=== PATIENT | male | born 1985 | race Caucasian/White ===

== ENCOUNTER 2024-11-17 20:38 | Emergency (ER) | payer OTHER ==
[~2024-11-17] VITALS: Ht 177.8 cm; Wt 107.5 kg
[~2024-11-17 20:38] MED LIST: TRAM50TA4 PO
[2024-11-17 20:54] VITALS: BP 157/112; PULSE 118; RESP 18; TEMP 99.2; O2SAT 97
--- NOTE | 2024-11-17 20:59 | EKG ---
[facility] Test Date: 2024-11-17 Test Time: 20:55:45 Pat Name: ELLA PETERSON Department: ED Room: Gender: M Psychosocial Rehabilitation Counselor: 08 : 1985 Requested By: INEZ MEI Order Number: [id number] Reading MD: Cornelius Lara Measurements Intervals [place] Rate: 103 P: 32 OR: 144 QRS: 33 QRSD: 81 T: 19 QT: 322 QTc: 423 Interpretive Statements Sinus tachycardia with irregular rate Consider left ventricular hypertrophy No previous ECG available for comparison Electronically Signed On 11-18-2024 19:19:34 BIOLOGY SPECIALIST by Cornelius Lara Please click the below link to view image of tracing.
[2024-11-17 21:17] LABS: BASOPHILS # (AUTO) 0.03 K/uL (0.00-0.20); BASOPHILS % (AUTO) 0.2 % (0.0-5.0); EOSINOPHILS # (AUTO) 0.16 K/uL (0.00-0.70); EOSINOPHILS % (AUTO) 1.2 % (0.0-8.0); HEMATOCRIT 40.6 % (42-54); IMMATURE GRANULOCYTE ABSOLUTE 0.09 K/uL (0-1); LYMPHOCYTES # (AUTO) 2.7 K/uL (1.0-4.8); LYMPHOCYTES % (AUTO) 20.4 % (21.0-51.0); MEAN CORPUSCULAR HEMOGLOBIN 27.4 pg (27.0-33.0); MEAN CORPUSCULAR HGB CONC 32.5 g/dL (32.0-36.0); MEAN CORPUSCULAR VOLUME 84.4 fL (79-99); MONOCYTES % (AUTO) 7.6 % (3.0-13.0); NEUTROPHILS # (AUTO) 9.3 K/uL (1.8-7.7); NEUTROPHILS % (AUTO) 69.9 % (40.0-77.0); PLATELET COUNT (AUTO) 361 K/uL (130-400); RED BLOOD CELL COUNT(AUTO) 4.81 MIL/uL (4.50-6.20); RED CELL DISTRIBUTION WIDTH 12.4 % (11.0-15.5); WHITE BLOOD COUNT (AUTO) 13.3 K/uL (4.8-10.8)
[2024-11-17 21:20] LABS: APPEARANCE,URINE CLEAR (CLEAR); BILIRUBIN,URINE NEGATIVE (NEGATIVE); COLOR,URINE LIGHT-YELLOW (YELLOW); GLUCOSE, URINE (UA) NEGATIVE (NEGATIVE); KETONES,URINE NEGATIVE (NEGATIVE); LEUKOCYTE ESTERASE ,URINE NEGATIVE Leu/uL (NEGATIVE); NITRATE,URINE NEGATIVE (NEGATIVE); OCCULT BLOOD,URINE NEGATIVE (NEGATIVE); PROTEIN,URINE NEGATIVE (NEGATIVE); UROBILINOGEN,URINE 0.2 mg/dL (0.2-1.0)
[2024-11-17 21:25] LABS: ADD UA MICROSCOPIC NO
[2024-11-17 21:27] LABS: CREATININE 1.1 mg/dL (0.5-1.3); POTASSIUM 3.9 mmol/L (3.5-5.1)
[2024-11-17 21:42] LABS: B-TYPE NATRIURETIC PEPTIDE < 5 pg/mL (0-100)
--- NOTE | 2024-11-17 21:44 | ERN ---
ED Note History of Present Illness Stated Complaint: CHEST PAINS,CHILLS Chief Complaint: Chest Pain Time Seen by MD: 21:04 Dictation: Mr. Almonte is a 39-year-old male who is obese presented to the emergency room complaining of chest pain and chills since 11/01/2024. Apparently he [place] and did not seek any medical attention. He had body aches and he rested for a few days after the fall. He reports that he has midsternal pain and describes it as a ripping sensation. No history of any radiation to the ba ck or left shoulder no nausea vomitings diarrhea hematemesis or melena no loss of consciousness Temperature 99.2 pulse 118 respirations 18 blood pressure 157/112 with a pulse oximetry of 97% on room air His chronic medical problems include anxiety, depression, chronic pain syndrome for which he stated that he takes tramadol and history of heart disease but denied any stents or bypass surgery Allergies: Coded Allergies: No Known Allergies (Unverified Allergy, Unknown, 01/19/23) Penicillins (Unverified Allergy, Unknown, HIVES, 01/19/23) Home Meds Reported Medications Tramadol Hcl (Tramadol HCl) 50 Mg Tablet, 25 MG PO HS, TAB 01/19/23 Past Medical History Past Medical History: Anxiety, Depression, Heart Disease Additional Past Medical Hx: TAKES TRAMADOL FOR CHRONIC PAIN, TYPHUS Surgical History: Other Surgical History Other: RT WRIST, UMBILICAL HERNIA Family History: DM, HTN Social History: Smokers RN Note Reviewed/Agreed w/PFSH: Yes Review of System Dictation Constitutional: Negative for fever,chills, and weight loss Eyes: Negative for injury, pain,redness, and discharge ENT: Negative for injury,pain or swelling Cardiovascular: Positive for chest pain, palpitations, and denied edema Respiratory: Negative for shortness of breath, cough, and wheezing, Abdomen/GI: Negative for abdominal pain, nausea, vomiting, diarrhea, and constipation Back: Negative for injury and pain : Negative for injury, bleeding and discharge MS/Extremity: Negative for injury and deformity Skin: Negative for rash, and discoloration Neuro: Negative for headache, weakness, numbness, tingling, and seizure Psych: Negative for suicide ideation, homicidal ideation, and hallucinations Initial Vital Sign VS Vital Signs Date Time Temp Pulse Resp B/P (MAP) Pulse Ox O2 Delivery O2 Flow Rate FiO2 11/17/24 20:39 99.1 118 18 157/112 97 Room Air 11/17/24 20:54 0 21 Physical Exam Dictation General: awake, alert, NAD Head/Face: Normocephalic, atraumatic Eyes: PERRL, EOMI, vision at baseline ENT: oral cavity clear, TMs clear, no signs of infection Neck: Trachea midline, supple, no nuchal rigidity Cardiovascular: RRR, normal S1/S2, No MRGs, no JVD Respiratory: CTAB, no respiratory distress, No rales or wheezes Abdomen: Soft, non-tender, non-distended, normal bowel sounds, no guarding or rebound. Skin: Warm, dry, normal turgor, no rash MS/Extremity: Pulses equal, no cyanosis, neurovascular intact, FROM Neuro: COAx4, GCS 15, strength 5/5, CN 2-12 intact, normal cerebellar exam, normal gait, Psych: Normal behavior, mood, and affect normal Extremities-trace edema without any palpable cords, Homans sign is negative Results (Laboratory/Radiology) Laboratory/Radiology Laboratory Tests Test 11/17/24 21:00 11/17/24 21:35 White Blood Count 13.3 K/uL (4.8-10.8) H Red Blood Count 4.81 MIL/uL (4.50-6.20) Hemoglobin 13.2 g/dL (14.0-18.0) L Hematocrit 40.6 % (42-54) L Mean Corpuscular Volume 84.4 fL (79-99) Mean Corpuscular Hemoglobin 27.4 pg (27.0-33.0) Mean Corpuscular Hemoglobin Concent 32.5 g/dL (32.0-36.0) Red Cell Distribution Width 12.4 % (11.0-15.5) Platelet Count 361 K/uL (130-400) Mean Platelet Volume 9.5 fL (7.5-10.5) Immature Granulocyte % (Auto) 0.7 % (0-1) Neutrophils (%) (Auto) 69.9 % (40.0-77.0) Lymphocytes (%) (Auto) 20.4 % (21.0-51.0) L Monocytes (%) (Auto) 7.6 % (3.0-13.0) Eosinophils (%) (Auto) 1.2 % (0.0-8.0) Basophils (%) (Auto) 0.2 % (0.0-5.0) Neutrophils # (Auto) 9.3 K/uL (1.8-7.7) H Lymphocytes # (Auto) 2.7 K/uL (1.0-4.8) Monocytes # (Auto) 1.0 K/uL (0.1-1.0) Eosinophils # (Auto) 0.16 K/uL (0.00-0.70) Basophils # (Auto) 0.03 K/uL (0.00-0.20) Absolute Immature Granulocyte (auto 0.09 K/uL (0-1) Nucleated Red Blood Cells 0.0 % (0.0-0.19) Urine Color LIGHT-YELLOW (YELLOW) Urine Appearance CLEAR (CLEAR) Urine pH 6.0 (5.0-8.0) Urine Specific [place] 1.026 (1.001-1.031) Urine Protein NEGATIVE mg/dL (NEGATIVE) Urine Glucose (UA) NEGATIVE mg/dL (NEGATIVE) Urine Ketones NEGATIVE mg/dL (NEGATIVE) Urine Occult Blood NEGATIVE (NEGATIVE) Urine Nitrate NEGATIVE (NEGATIVE) Urine Bilirubin NEGATIVE mg/dL (NEGATIVE) Urine Urobilinogen 0.2 mg/dL (0.2-1.0) Urine Leukocyte Esterase NEGATIVE [place]/uL Sodium Level 139 mmol/L (136-145) Potassium Level 3.9 mmol/L (3.5-5.1) Chloride Level 101 mmol/L (101-111) Carbon Dioxide Level 31 mmol/L (21-32) Blood Urea Nitrogen 12 mg/dL (7-18) Creatinine 1.1 mg/dL (0.5-1.3) Glomerular Filtration Rate Calc 87 mL/min (>90) Random Glucose 106 mg/dL (70-105) H Total Calcium 9.2 mg/dL (8.5-10.1) Total Creatine Kinase 329 U/L (21-232) #H Troponin I High Sensitivity 17 ng/L (4-75) B-Type Natriuretic Peptide < 5 pg/mL (0-100) Troponin I < 0.05 ng/mL (0.00-0.05) Labs Reviewed?: Yes EKG Comment: Twelve lead EKG done on 11/17/2024 at 8:55 p.m. showed a heart rate of 103, SD interval 144, QRS 81, QT/QTC 322/423 Impression sinus tachycardia with sinus arrhythmia. LVH, small Q-waves lead 1 lead 2 aVL. Q-waves in lead 3 Interpreted by ER MD Dr. Estrada X-RAY Comment: PATIENT: ELLA ALMONTE MR#: [id number] : 1985 SEX: M AGE: 39 LOCATION: [facility] ORDER 49 STATUS: REG ER REPORT#: [id number] SERVICE 48 REASON: CHEST PAIN ORDERING PHYSICIAN: INEZ ESTRADA MD PROCEDURE: CXR1VW - CHEST 1VW CHEST 1VW CLINICAL HISTORY: CHEST PAIN COMPARISON: None TECHNIQUE: Single view of the chest was obtained. FINDINGS: There is a vague small area of increased opacification right upper lobe the lungs are otherwise clear. The cardiac size and mediastinum are unremarkable. The bony structures are within normal limits. IMPRESSION: Questionable small right upper lobe infiltrate. DICTATED BY: MAGAN CAR DO DATE: 11/17/242137 ELECTRONICALLY SIGNED BY: MAGAN CAR DO DATE: 11/17/242141 ED Course ED Course Orders Procedure Category Date Status Time Vital Signs Per CPOE 11/17/24 Transmitted Routine 20:49 B-Type Natriuretic LAB 11/17/24 Complete Peptide 20:49 Chest 1vw RAD 11/17/24 Resulted 20:49 12 Lead Ekg Tracing- EKG 11/17/24 Complete Technical 20:49 Oxygen By Nc/Pulse Ox CPOE 11/17/24 Transmitted 20:49 Maintain Iv CPOE 11/17/24 Transmitted 20:49 Iv Insertion CPOE 11/17/24 Transmitted 20:49 Cardiac Monitoring CPOE 11/17/24 Transmitted 20:49 Pulse Oximetry With CPOE 11/17/24 Transmitted Vs And Prn 20:49 Cbc With Differential LAB 11/17/24 Complete 20:49 Activity: Br W/Brp CPOE 11/17/24 Transmitted With Assist 20:49 Creatine Kinase, Total LAB 11/17/24 Complete 20:49 Troponin I High LAB 11/17/24 Complete Sensitivity 20:49 Urinalysis Profile LAB 11/17/24 Complete 20:49 Troponin Poc Order LAB 11/17/24 Logged Only 20:49 Bedside Troponin-I LAB.ER 11/17/24 In Process (Poc) 20:49 Basic Metabolic Panel LAB 11/17/24 Complete 20:49 Drug Screen Urine LAB 11/17/24 Logged 21:38 Vital Signs Date Time Temp Pulse Resp B/P (MAP) Pulse Ox O2 Delivery O2 Flow Rate FiO2 11/17/24 20:54 99.1 118 18 157/112 97 Room Air* 0 21 11/17/24 20:39 99.1 118 18 157/112 97 Room Air HEART Score Response (Comments) Value History: Moderate suspicion (+1) 1 EKG: Repolarization changes 1 Age: < 45yrs (0) 0 Risk Factors: 1-2 risk factors (+1) 1 Initial Troponin: Normal limit (0) 0 HEART Score Risk: Low Risk for MACE (1-3) Total 3 Medical Decision Making MDM MDM: Differential diagnosis:-viral syndrome, chest wall contusion, pneumonia, pulmonary contusion Rationale: Tests considered and ordered secondary to shared decision making include: Previous outside records reviewed: Old ER visits. Risk of complication and/or morbidity or mortality of patient management: None Medications-Per medication reconciliation Need for hospitalization: Patient does not meet criteria for hospitalization. Need for emergency major/minor surgery: No There are no social concerns with this patient. Prescription drug management Prescriptions will include symptomatic care Patient's prior external medical records from other ER visits were reviewed by me as indicated. Prior testing and results from previous visits were reviewed. Prior tests were taken into account with medical decision making and resource utilization, independent historian/historians were used to obtain complete medical history. I independently interpreted the test that were performed, results were reviewed by me and considered findings on radiology if ordered. Medical management and examination interpretation discussions were had by me with other qualified healthcare professionals as indicated for the patient's care. Problem List Problem List: (1) Right upper lobe pneumonia (2) Pleuritic chest pain (3) Fever (4) SIRS (systemic inflammatory response syndrome) DX & DISP Disposition: Discharge Departure Impression: Primary Impression: Right upper lobe pneumonia Additional Impressions: SIRS (systemic inflammatory response syndrome), Fever, Pleuritic chest pain Condition: Stable Scripts Levofloxacin (Levofloxacin) 750 Mg Tablet 1 TAB PO DAILY for 7 Days, #7 TAB 0 Refills Prov: THOPU,INEZ R MD 11/17/24 Additional Instructions: Patient and the caregiver have been informed of all the diagnostic tests and the imaging conducted during the today's visit to the emergency room and has verbalized understanding of the results I have personally reviewed and interpreted all diagnostic exams performed here in the ER today as well as the vital signs documented by the nursing staff. The patient is now being discharged to home and should follow up with the primary care physician or the specialist as directed by the ER staff. Follow-up with primary care provider in 1 to 2 days. Take medications as directed here in the emergency room. Okay to continue home medications unless otherwise discussed during your visit in the emergency room today. Return to your nearest emergency room if symptoms worsen or if there is no improvement. Call 911 if you need immediate assistance. Take Tylenol or Motrin [id number] as needed and if no contraindications are present. Increase oral hydration. A wound culture or urine culture was ordered here in the emergency room department please follow-up with primary care provider and advise them to get repeat ports from our facility. If you had any Chuck wrap/splints that were applied here, please do not remove them until you see your primary care or specialty. Referrals: SELF,REFERRAL (PCP) INEZ ESTRADA MD Nov 17, 2024 21:44
[2024-11-17] MEDS ORDERED: LEVO750T40 PO (22:06)
[2024-11-17] MEDS: ketOROlac 30MG VIAL (30MG/ML) IM ONE (22:07)
[2024-11-17] MEDS: levoFLOXacin 750 MG TABLET PO ONE (22:08)
[2024-11-17 22:48] LABS: AMPHET/METH SCREEN,URINE NEGATIVE (NEGATIVE); BARBITURATE SCREEN, URINE NEGATIVE (NEGATIVE); BENZODIAZEPINES SCREEN,URINE NEGATIVE (NEGATIVE); CANNABINOID SCREEN,URINE NEGATIVE (NEGATIVE); COCAINE SCREEN,URINE NEGATIVE (NEGATIVE); OPIATE SCREEN,URINE POSITIVE (NEGATIVE); PHENCYCLIDINE SCREEN,URINE NEGATIVE (NEGATIVE)
== END 2024-11-17 22:24 | disposition home or self-care (01) ==
LOC: EDH 20:38
DX: J18.9 Pneumonia, unspecified organism (principal); R65.10 Systemic inflammatory response syndrome (SIRS) of non-infectious origin without acute organ dysfunction; R07.81 Pleurodynia; G89.29 Other chronic pain; F17.200 Nicotine dependence, unspecified, uncomplicated; Z88.0 Allergy status to penicillin; Z79.899 Other long term (current) drug therapy
CPT/HCPCS: 99285; 71045; 82550; 84484 ×2; 80048; 83880; 80305; 85025; 36415; 96372; 93005; 81003; J1885